=== PATIENT | male | born 1980 | race Hispanic/Latino ===

== ENCOUNTER 2023-01-19 16:27 | Observation (INO) | payer OTHER, SELFPAY ==
[2023-01-19] VITALS (13 sets, daily range): BP systolic 155–252; BP diastolic 88–137; PULSE 102–114; RESP 18–33; TEMP 36.6–36.8; O2SAT 94–99; BMI 36.5
--- NOTE | ~2023-01-19 | US_ITS ---
EXAMINATION: US retroperitoneal duplex ltd DATE: 01/20/2023 11:17 INDICATION: Hypertensive emergency TECHNIQUE: Multiple grayscale, color Doppler, and pulsed Doppler images of the kidneys and renal herminio dane were obtained. COMPARISON: None. FINDINGS: The aorta peak systolic velocity is 96 cm/s. The right renal artery peak systolic velocity is 119 cm/ s in the proximal segment, 59 cm/s in the mid segment, and 79 cm/s in the distal segment. The left re nal artery peak systolic velocity is 144 cm/s in the proximal segment, 119 cm/s in the mid segment, a nd 82 cm/s in the distal segment. The bladder is imaged and appears normal. IMPRESSION: 1. No Doppler evidence of renal artery stenosis. Reviewed, dictated and finalized at location A.
--- NOTE | ~2023-01-19 | XR_ITS ---
EXAMINATION: XR chest 1V portable 01/19/2023 17:56 INDICATION: Hypertension PROCEDURE: AP portable chest COMPARISON: No prior studies for comparison. FINDINGS: The lungs are clear. The cardiomediastinal silhouette is within normal limits. There are no pleural effusions. There is no pneumothorax suspected. IMPRESSION: 1: NO ACUTE CARDIOPULMONARY DISEASE. Reviewed, dictated and finalized at location A.
--- NOTE | 2023-01-19 16:39 | ECG_ITS ---
Measurements Intervals [place] Rate: 106 P: 39 MA: 148 QRS: -39 QRSD: 90 T: 112 QT: 329 QTc: 438 Interpretive Statements SINUS TACHYCARDIA LEFT ATRIAL ENLARGEMENT [-0.15mV P WAVE IN V1/V2] MARKED LEFT AXIS DEVIATION [QRS AXIS < -30] LEFT VENTRICULAR HYPERTROPHY AND ST-T CHANGE [VOLTAGE CRITERIA PLUS ST/T ABNORMALITY] CANNOT RULE OUT SEPTAL MYOCARDIAL INFARCTION , OF INDETERMINATE AGE [30 ms Q WAVE IN V1/V2] NO PREVIOUS ECG AVAILABLE FOR COMPARISON Electronically Signed On 01-20-2023 18:12:59 CDT by Marlen Tavarez M.D.
[2023-01-19 16:52] LABS: Hematocrit 45.3 % (42.0-52.0); Hemoglobin 15.1 g/dL (14.0-18.0); Mean Corpuscular HGB Conc 33.3 g/dl (32-36); Mean Corpuscular Hemoglobin 29.4 pg (26-34); Mean Corpuscular Volume 88.1 fl (80-100); Mean Platelet Volume 11.3 fl (7.4-10.4); Platelet Count Result 256 k/mm3 (150-375); Red Blood Count 5.14 M/mm3 (4.6-6.20); Red Cell Distribution Width 13.3 % (11.5-14.5); White Blood Count 13.5 K/mm3 (4.5-10.0)
[2023-01-19 17:02] LABS: Alanine Aminotransferase 32 U/L (6-50); Albumin Level 4.4 g/dL (3.5-5.1); Alkaline Phosphatase 88 U/L (38-126); Anion Gap 5 mmol/L (8-16); Aspartate Amino Transferase 34 U/L (17-59); Bilirubin,Total 1.1 mg/dL (0.2-1.3); Blood Urea Nitrogen 20 mg/dL (9-20); Calcium 8.9 mg/dL (8.4-10.2); Carbon Dioxide 31 mmol/L (22-30); Chloride 102 mmol/L (98-107); Estimated CRCL calculation 121 ml/min; Estimated Glomerular Filt Rate > 60; Glucose 95 mg/dL (65-110); Potassium 3.7 mmol/L (3.4-5.0); Sodium 138 mmol/L (137-145)
[2023-01-19 17:15] LABS: Troponin I 0.362 ng/mL (0.000-0.034)
[2023-01-19 17:20] LABS: Eosinophils Absolute Manual 0.13 K/mm3 (0.02-0.5); Eosinophils Percent Manual 1 % (0-4); Lymphocytes Absolute Manual 5.13 K/mm3 (1.1-4.5); Monocytes Absolute Manual 0.81 K/mm3 (0.1-0.90); Monocytes Percent Manual 6 % (3-9); Neutrophils Percent Manual 55 % (46-73); Platelet Estimate Adequate (Adequate); Schistocytes None Seen (NORMAL); Total Cells Counted 100
--- NOTE | 2023-01-19 17:45 | ED.RECABL ---
HPI - Recheck/Abnormal Lab/Rx General Chief Complaint: Recheck/Abnormal Lab/Rx Stated Complaint: HTN Time Seen by Provider: 01/19/23 16:33 History of Present Illness HPI narrative: Patient is a 42-year-old male with a history of hypertension presenting with high blood pressure. Patient states that he was at a physical earlier today and was told that his blood pressure is too high and that he needs to come to the ER. States that it was in the 240s to 250s systolic. States that he used to be on antihypertensives but he has not been for several years. He denies any complaints at this time. No headache, vision changes, chest pain, shortness of breath, leg swelling. States he feels at baseline. Related Data Allergies Allergy/AdvReac Type Severity Reaction Status Date / Time No Known Allergies Allergy Mild Verified 01/19/23 16:45 Review of Systems Review of Systems: All systems reviewed & are unremarkable except as noted in HPI and below PMFSH Past Medical History Medical History Hypertension Surgical History Surgical History History of appendectomy (2010) Family History Family History Mother Patient's mother is in good health Diabetes mellitus Father Patient's father is in good health COVID Social History Social History Social History: Surrogate medical decision maker: Roz Saavedra, spouse. Code status: Full code. Smoking packs per day: 0.5 Smoking cigarettes per day: 10.0 Smoking status: Former smoker Tobacco type: cigarettes Alcohol intake: never Substance use: never Lack of Transportation: No Lack of Food: Never True Current Housing: I Have Housing Concerned About Future Housing: No Difficulty Paying Gas/Electric Bills: No Difficulty Paying for Meds: No Currently Unemployed: No Education: High School Diploma/GED Difficulty w/ Childcare or Family Care: No Additional living arrangements comments: The patient lives with his and 2 daughters in [place]. 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 Spiritual care concerns: No Exam Narrative: GENERAL: Well-appearing, well-nourished, and in no acute distress. HEAD: Normocephalic, atraumatic. EYES: PERRLA and EOMI. ENT: Nares clear, no rhinorrhea or epistaxis. Mucous membranes moist. NECK: Supple. CHEST: Clear to auscultation. No respiratory distress. HEART: Regular rate and rhythm. No murmur heard. Normal peripheral pulses. ABDOMEN: Soft, nontender, nondistended EXTREMITIES: Normal range of motion. No edema. SKIN: Warm, dry, no rash. NEURO: No focal deficits. Alert and oriented x3. PSYCH: Normal mood and affect. Course Vital Signs Vital signs: Vital Signs Temperature 98.2 F 01/19/23 16:28 Pulse Rate 108 H 01/19/23 16:28 Respiratory Rate 18 01/19/23 16:28 Blood Pressure 245/130 H 01/19/23 16:28 Pulse Oximetry 99 01/19/23 16:28 Oxygen Delivery Room Air 01/19/23 16:28 Temperature 98.5 F 01/20/23 11:47 Pulse Rate 100 01/20/23 14:00 Respiratory Rate 16 01/20/23 11:47 Blood Pressure 143/87 H 01/20/23 11:47 Pulse Oximetry 98 01/20/23 12:00 Oxygen Delivery Room Air 01/20/23 12:00 MDM - Recheck/Abnormal Lab/Rx MDM Narrative Medical decision making narrative: Patient is a 42-year-old male presenting with hypertension. On arrival, his blood pressures 240s over 130s. He is a bit tachycardic. Saturating well on room air. EKG per my interpretation shows sinus tachycardia, left axis deviation, no ST elevations or depressions. Troponin is elevated at 0.362. Patient continues to deny any chest pain or shortness of breath. Patient will be started on a Cardene drip for hypertensive emergency. I spoke with the bottle blowing machine tender who is happy to consult on
[2023-01-19] MEDS: niCARdipine 20 MG/200 ML 20 MG/200 ML BAG 50 MG IV CONT (18:13)
--- NOTE | 2023-01-19 18:45 | PM.IMHP ---
H&P: HPI History of Present Illness Date/Time: 01/19/23 18:45 Chief Complaint: High blood pressure. Narrative: This is a pleasant 42-year-old male with hypertension no longer on medication following weight loss who presented to the emergency department via private vehicle for evaluation of high blood pressure. Patient provides the following history. He had a pre-employment physical today and was directed to the ER after his systolic blood pressure was reportedly 230. He reports feeling in his usual state of health and he denies headache, lightheadedness, vision changes, chest pain, shortness a breath, orthopnea, lower extremity edema, nausea, and vomiting. His blood pressure was as high as 252/137 in the ED and he was given IV labetalol 20 mg with improvement in his systolic to around 200. Labs were significant for a WBC count of 13.5, BUN 20, creatinine 0.80, troponin 0.362. EKG today showed findings of LVH, left axis deviation, and possible septal infarct of indeterminate age. He is being admitted to the ICU in this setting on a nicardipine drip. He has no current complaints. The patient believes that he was on lisinopril and a diuretic several years ago which seemed to keep his blood pressure under good control. After losing 50 lb he quit taking his medications but unfortunately he has not been following his blood pressures at home. Review of Systems Review of Systems: Twelve systems were reviewed and are negative except for as per HPI. [facility] Past Medical History Medical History (Updated 01/19/23 @ 21:48 by Gillian Fragoso PA-C) Hypertension Surgical History Surgical History (Updated 01/19/23 @ 21:48 by Gillian Fragoso PA-C) History of appendectomy (2010) Family History Family History (Updated 01/19/23 @ 18:47 by Louise Nails RN) Mother Patient's mother is in good health Diabetes mellitus Father Patient's father is in good health COVID Social History Social History (Updated 01/19/23 @ 21:49 by Gillian Fragoso PA-C) Social History: Surrogate medical decision maker: Roz Saavedra, spouse. Code status: Full code. Smoking packs per day: 0.5 Smoking cigarettes per day: 10.0 Smoking status: Former smoker Tobacco type: cigarettes Alcohol intake: never Substance use: never Lack of Transportation: No Lack of Food: Never True Current Housing: I Have Housing Concerned About Future Housing: No Difficulty Paying Gas/Electric Bills: No Difficulty Paying for Meds: No Currently Unemployed: No Education: High School Diploma/GED Difficulty w/ Childcare or Family Care: No Additional living arrangements comments: The patient lives with his and 2 daughters in [place]. 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 Spiritual care concerns: No Meds Home Medications and Allergies Home Medications Medication Instructions Recorded Confirmed Type No Home Medications 01/19/23 01/19/23 History Allergies Allergy/AdvReac Type Severity Reaction Status Date / Time No Known Allergies Allergy Mild Verified 01/19/23 16:45 Vital Signs Vital Signs - 24 hr 01/19/23 16:28 01/19/23 16:44 01/19/23 17:44 Temperature 98.2 F Pulse Rate 108 H 107 H 102 H Respiratory Rate 18 21 H 23 H Blood Pressure 245/130 H 252/137 H 207/114 H Pulse Oximetry 99 98 98 Oxygen Delivery Room Air Exam Narrative: General: Well-developed, well-nourished male sitting up in bed in no acute distress. Weight: 105 kg. BMI: 37.4. HEENT: PERRL, EOMI. Sclera anicteric. Conjunctiva mildly injected. Oral mucosa moist. Oropharynx clear. Neck: Supple. No JVD. Respiratory: Lungs are clear to auscultation bilaterally. Cardiovascular: Regular rate and rhythm with S1-S2. Gastrointestinal: Abdomen is soft, nontender, and nondistended with positive bowel sounds. No organomegaly. Skin: Warm and dry. No rash or lesions on limited exam. Extremities: No cyanosis,
--- NOTE | 2023-01-19 19:59 | ADMGEN ---
This patient, Alli Saavedra, was admitted to Intensive Care Unit-10. Patient/family oriented to hospital policies and general routines including ID bracelet, bed and alarms, visiting hours, pain management, procedures, bathroom and other care routines, personal items, smoking policy, room service/diet, and visiting hours. Information on how to activate the Rapid Response Team has been discussed. Patient/Family are encouraged to report perceived risks to care and to ask questions if they do not understand what they are told or what they should do.
[2023-01-19 20:20] LABS: Troponin I 0.301 ng/mL (0.000-0.034)
[2023-01-19] MEDS: LOSARTAN POTASSIUM 50 MG TABLET PO (23:26)
[2023-01-19 23:27] LABS: Troponin I 0.334 ng/mL (0.000-0.034)
[2023-01-20] VITALS (9 sets, daily range): BP systolic 116–194; BP diastolic 69–103; PULSE 85–107; RESP 16–27; TEMP 36.8–36.9; O2SAT 94–99
[2023-01-20 04:32] LABS: Hematocrit 43.6 % (42.0-52.0); Hemoglobin 14.6 g/dL (14.0-18.0); Mean Corpuscular HGB Conc 33.5 g/dl (32-36); Mean Corpuscular Hemoglobin 29.4 pg (26-34); Mean Corpuscular Volume 87.9 fl (80-100); Mean Platelet Volume 11.2 fl (7.4-10.4); Platelet Count Result 237 k/mm3 (150-375); Red Blood Count 4.96 M/mm3 (4.6-6.20); Red Cell Distribution Width 13.3 % (11.5-14.5)
[2023-01-20 04:43] LABS: Anion Gap 5 mmol/L (8-16); Blood Urea Nitrogen 16 mg/dL (9-20); Calcium 8.6 mg/dL (8.4-10.2); Carbon Dioxide 30 mmol/L (22-30); Chloride 102 mmol/L (98-107); Cholesterol 154 mg/dL (0-200); Estimated CRCL calculation 120 ml/min; Estimated Glomerular Filt Rate > 60; Glucose 109 mg/dL (65-110); HDL Direct 32 mg/dL; Magnesium 2.2 mg/dL (1.6-2.3); Potassium 3.8 mmol/L (3.4-5.0); Sodium 137 mmol/L (137-145); Triglycerides 108 mg/dL (<150)
[2023-01-20 04:53] LABS: LDL Cholesterol Direct 92 mg/dL
[2023-01-20] MEDS: LOSARTAN POTASSIUM 50 MG TABLET PO (07:42)
[2023-01-20] MEDS: hydroCHLOROthiazide 25 MG TABLET PO (07:42)
[2023-01-20] MEDS: PERFLUTREN LIPID MICROSPHERES 1.5 ML VIAL DILUTED TO 10 ML TOTAL VOLUME IV PUSH (08:11)
--- NOTE | 2023-01-20 08:11 | IVDEFINITY ---
Prior to administration of IV Definity the patient was educated on the risks and benefits of the imaging enhancing agent including potential adverse side effects. The patient verbalized understanding. Allergies were verified. No exclusion criteria were identified and at least one of the following inclusion criteria were met: 1) physician request, 2) patient technically difficult to image (per the [place] [employer] guidelines of two or more segments not discernable within the apical view), or 3) questionable left ventricular function. ?
[2023-01-20] MEDS: hydrALAZINE HCL 20 MG/ML VIAL IV PUSH (08:37)
--- NOTE | 2023-01-20 11:05 | PM.IMPN ---
Progress Note: A&P Assessment and Plan (1) Hypertensive emergency: Code(s): I16.1 - Hypertensive emergency Status: Acute Assessment and Plan: Blood pressure improved, change to orals. Consider adding beta darryl (2) Elevated troponin: Code(s): R77.8 - Other specified abnormalities of plasma proteins Status: Acute Assessment and Plan: Denies chest pain current Subjective Date/time seen: 01/20/23 11:05 No complaints Exam Narrative: General: Well-developed, well-nourished male sitting up in bed in no acute distress. Weight: 105 kg. BMI: 37.4. HEENT: PERRL, EOMI. Sclera anicteric. Conjunctiva mildly injected. Oral mucosa moist. Oropharynx clear. Neck: Supple. No JVD. Respiratory: Lungs are clear to auscultation bilaterally. Cardiovascular: Regular rate and rhythm with S1-S2. Gastrointestinal: Abdomen is soft, nontender, and nondistended with positive bowel sounds. No organomegaly. Skin: Warm and dry. No rash or lesions on limited exam. Extremities: No cyanosis, clubbing, or edema. Radial and pedal pulses intact. Neurological: Alert. Cranial nerves 2-12 are grossly intact. No gross focal deficits to casual conversation. Psychiatric: Pleasant and cooperative with normal mood and affect. Judgment and insight intact. Objective Data Vital Signs Vital Signs: Vital Signs - 24 hr 01/19/23 16:28 01/19/23 16:44 01/19/23 17:44 Temperature 98.2 F Pulse Rate 108 H 107 H 102 H Respiratory Rate 18 21 H 23 H Blood Pressure 245/130 H 252/137 H 207/114 H Pulse Oximetry 99 98 98 Oxygen Delivery Room Air 01/19/23 18:13 01/19/23 18:16 01/19/23 18:59 Temperature Pulse Rate 106 H 104 H 114 H Respiratory Rate 23 H 33 H Blood Pressure 207/114 H 227/120 H 195/93 H Pulse Oximetry 97 96 Oxygen Delivery 01/19/23 19:20 01/19/23 20:00 01/19/23 20:45 Temperature 97.8 F Pulse Rate 110 H 114 H Respiratory Rate 27 H Blood Pressure 164/88 H 165/93 H 160/88 H Pulse Oximetry 96 Oxygen Delivery 01/19/23 21:03 01/19/23 20:00 01/19/23 20:05 Temperature Pulse Rate 114 H Respiratory Rate Blood Pressure 172/97 H Pulse Oximetry 96 Oxygen Delivery Room Air 01/19/23 21:00 01/19/23 22:00 01/19/23 22:00 Temperature Pulse Rate 108 H 102 H 102 H Respiratory Rate 25 H Blood Pressure 165/95 H 155/99 H Pulse Oximetry 94 Oxygen Delivery 01/20/23 00:00 01/20/23 00:00 01/20/23 00:00 Temperature 98.4 F Pulse Rate 92 92 Respiratory Rate 27 H Blood Pressure 169/96 H Pulse Oximetry 94 94 Oxygen Delivery Room Air 01/20/23 02:00 01/20/23 02:00 01/20/23 04:00 Temperature Pulse Rate 85 85 85 Respiratory Rate 24 H Blood Pressure 148/94 H Pulse Oximetry 94 Oxygen Delivery 01/20/23 04:00 01/20/23 04:00 01/20/23 06:00 Temperature 98.3 F Pulse Rate 85 88 Respiratory Rate 24 H Blood Pressure 159/92 H Pulse Oximetry 99 98 Oxygen Delivery Room Air 01/20/23 06:00 01/20/23 08:00 01/20/23 08:00 Temperature 98.5 F Pulse Rate 88 97 Respiratory Rate 22 H 16 Blood Pressure 168/98 H 194/103 H Pulse Oximetry 95 98 98 Oxygen Delivery Room Air 01/20/23 08:00 01/20/23 10:00 01/20/23 10:00 Temperature Pulse Rate 96 85 93 Respiratory Rate 16 Blood Pressure 116/69 Pulse Oximetry 98 Oxygen Delivery Intake/Output Intake/Output: Intake & Output 01/17/23 01/18/23 01/19/23 01/20/23 23:59 23:59 23:59 23:59 Intake Total 480 Output Total 2200 Balance -1720 Meds/Results Medications: Active Medications Generic Name Dose Route Start Last Admin Trade Name Freq PRN Reason Stop Dose Admin Dextrose 12.5 gm 01/19/23 21:52 Dextrose 50% 25 Gm/50 Ml Syringe IV PUSH PRN PRN Hypoglycemia Protocol Glucagon 1 mg 01/19/23 21:52 Glucagon For Inj 1 Mg Vial IM PRN PRN Hypoglycemia Protocol Glucose 15 gm 01/19/23 21:52
--- NOTE | 2023-01-20 11:49 | WPDCNINT ---
Assessment and Plan Assessment and plan (1) Hypertensive urgency: Code(s): I16.0 - Hypertensive urgency Status: Acute Assessment and Plan: Patient presented with hypertensive urgency -has been started on losartan, hydrochlorothiazide -will still maintain blood pressures at least between 160s to 180s and gradually bring the the blood pressures down - (2) Elevated troponin: Code(s): R77.8 - Other specified abnormalities of plasma proteins Status: Acute Assessment and Plan: Likely related to hypertensive urgency Plan DVT prophylaxis: SCDs Stress ulcer prophylaxis: Not indicated Nutrition: Heart healthy diet Code Status: Full code Critical Care Time Spent: 44 minutes Due to a high probability of clinically significant, life threatening deterioration, the patient required my highest level of preparedness to intervene emergently and I personally spent this critical care time directly and personally managing the patient. This critical care time included obtaining a history; examining the patient; pulse oximetry; ordering and review of studies; arranging urgent treatment with development of a management plan; evaluation of patient's response to treatment; frequent reassessment; and discussions with other providers. It was exclusive of separately billable procedures and treating other patients and teaching time. Please see Assessment and Plan section and the rest of the note for further information on patient assessment and treatment This dictation may have been done utilizing a voice recognition system. Attempts have been made to correct errors. However, there may be uncorrected grammatical, spelling, and recognitions errors present. [employer] Consult Note Consult date: 01/20/23 Reason for consult: Hypertensive urgency HPI: Alli Saavedra is a 42 year old male with past medical history of hypertension, presented the ED with via private vehicle for evaluation of elevated blood pressures. Patient stated that he had a pre-employment physical exam on the day of admission and his systolic blood pressures were elevated to 30 and was sent to the ED for further evaluation. Patient denies any headache, lightheadedness, vision changes, chest pain, shortness of breath, little lower extremity edema, nausea, vomiting, abdominal pain. His blood pressures in the ED was 252/137, patient was given IV labetalol and started on nicardipine drip. Upon arrival to the ICU patient was on nicardipine drip for 2 hours after which it was discontinued. Patient was started on HCTZ and losartan per hospitalist with a target systolic blood pressures of 170-180. Patient was troponins were slightly elevated, had leukocytosis in the ER, EKG showed LVH, chest x-ray showed no acute cardiopulmonary disease. This morning renal duplex ultrasound was done which did not reveal any evidence of renal artery stenosis. Patient seen and examined this morning in the ICU, systolic blood pressures were much improved to the 140s to 170s range. Patient denies any chest pain, shortness with, abdominal pain, nausea, vomiting, abdominal pain, lightheadedness, dizziness, vision changes. He denies any alcohol or illicit drug use, he was a former smoker. Review of Systems Review of Systems: All systems reviewed & are unremarkable except as noted in HPI and below PMFSH Past Medical History Medical History (Updated 01/20/23 @ 11:59 by Ellen Haji MD) Hypertension Surgical History Surgical History (Updated 01/19/23 @ 21:48 by Gillian Fragoso PA-C) History of appendectomy (2010) Family History Family History (Updated 01/19/23 @ 18:47 by Louise Nails RN) Mother Patient's mother is in good health Diabetes mellitus Father Patient's father is in good health COVID Social History Social History (Updated 01/19/23 @ 21:49 by Gillian Fragoso PA-C) Social History: Surrogate medical decision maker: oscar Howe
--- NOTE | 2023-01-20 13:07 | PM.CNCAR ---
Assessment and Plan Assessment and plan (1) Hypertensive urgency: Code(s): I16.0 - Hypertensive urgency Status: Acute (2) Elevated troponin: Code(s): R77.8 - Other specified abnormalities of plasma proteins Status: Acute Plan Blood pressure is now much improved with Losartan and HCTZ. Elevated troponins are flat and in the setting of uncontrolled hypertension. No chest pain or other cardiac symptoms. EKG without ischemic changes. Likely type II. No concern for ACS. Echo showing severe concentric LVH with mildly reduced LVSF. Likely from longstanding uncontrolled HTN. Recommend to continue with Losartan, HCTZ. Add Coreg 12.5mg BID given mild tachycardia. At this time, no further cardiac workup as inpatient needed. Okay to discharge home from a cardiac standpoint. We will arrange for outpatient follow up in our clinic. Recommendations discussed with Hospitalist, Dr. Seth. History of Present Illness History of Present Illness Consult date/time: 01/20/23 13:07 Requesting physician: Natasha Wills MD Consult reason: Other (Hypertensive emergency) Reason For Visit: hypertensive emergency Narrative: We are consulted for hypertensive emergency and elevated troponin. This is a 42 year old male with a history of hypertension not on medications who presented to [place] ER for evaluation of high blood pressure. Had a pre-employment physical and was found with SBP in the 230s, therefore, sent to the ER for further management. Patient states he feels fine without chest pain, shortness of breath, or other symptoms. BP 252/137 in the ED. Given IV Labetalol 20mg with improvement. EKG with sinus rhythm with LVH with secondary repolarization changes. Initially on Nicardipine drip. Peak troponin of 0.362. BP now in the 140s-160s systolics. Review of Systems Review of Systems: All systems reviewed & are unremarkable except as noted in HPI and below (HPI) [facility] Past Medical History Medical History Hypertension Surgical History Surgical History History of appendectomy (2010) Family History Family History Mother Patient's mother is in good health Diabetes mellitus Father Patient's father is in good health COVID Social History Social History Social History: Surrogate medical decision maker: Roz Saavedra, spouse. Code status: Full code. Smoking packs per day: 0.5 Smoking cigarettes per day: 10.0 Smoking status: Former smoker Tobacco type: cigarettes Alcohol intake: never Substance use: never Lack of Transportation: No Lack of Food: Never True Current Housing: I Have Housing Concerned About Future Housing: No Difficulty Paying Gas/Electric Bills: No Difficulty Paying for Meds: No Currently Unemployed: No Education: High School Diploma/GED Difficulty w/ Childcare or Family Care: No Additional living arrangements comments: The patient lives with his and 2 daughters in [place]. 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 Spiritual care concerns: No Meds Home Medications and Allergies Home Medications Medication Instructions Recorded Confirmed Type No Home Medications 01/19/23 01/19/23 History Allergies Allergy/AdvReac Type Severity Reaction Status Date / Time No Known Allergies Allergy Mild Verified 01/19/23 16:45 Vital Signs Vital Signs - 24 hr 01/19/23 16:28 01/19/23 16:44 01/19/23 17:44 Temperature 36.8 C Pulse Rate 108 H 107 H 102 H Respiratory Rate 18 21 H 23 H Blood Pressure 245/130 H 252/137 H 207/114 H Pulse Oximetry 99 98 98 Oxygen Delivery Room Air 01/19/23 18:13 01/19/23 18:16 01/19/23 18:59 Temperature Pulse Rate 106 H 104 H 114 H Respiratory Rate 23 H 33 H Blood Press
--- NOTE | 2023-01-20 14:02 | PM.DS ---
DS: Admitting Diagnosis Discharge Date 01/20/23 Admitting Diagnosis hypertensive urgency DS: Discharge Diagnosis Discharge Diagnosis (1) Hypertensive urgency: Code(s): I16.0 - Hypertensive urgency Status: Acute Assessment and Plan: Patient presented with hypertensive urgency -has been started on losartan, hydrochlorothiazide -will still maintain blood pressures at least between 160s to 180s and gradually bring the the blood pressures down - (2) Elevated troponin: Code(s): R77.8 - Other specified abnormalities of plasma proteins Status: Acute Assessment and Plan: Likely related to hypertensive urgency Plan DVT prophylaxis: SCDs Stress ulcer prophylaxis: Not indicated Nutrition: Heart healthy diet Code Status: Full code Critical Care Time Spent: 44 minutes Due to a high probability of clinically significant, life threatening deterioration, the patient required my highest level of preparedness to intervene emergently and I personally spent this critical care time directly and personally managing the patient. This critical care time included obtaining a history; examining the patient; pulse oximetry; ordering and review of studies; arranging urgent treatment with development of a management plan; evaluation of patient's response to treatment; frequent reassessment; and discussions with other providers. It was exclusive of separately billable procedures and treating other patients and teaching time. Please see Assessment and Plan section and the rest of the note for further information on patient assessment and treatment This dictation may have been done utilizing a voice recognition system. Attempts have been made to correct errors. However, there may be uncorrected grammatical, spelling, and recognitions errors present. DS: Summary Hospital Course Hospital Course: admitted for hypertensive urgency --> iv to oral regimen, bp better controlled fu cardiology Time Spent with Patient Time attestation: Total time spent providing and/or coordinating discharge services: Exam Narrative: General: Pleasant gentleman no acute distress HEENT:? Pupils equal and reactive, sclera is clear, moist oral mucosa Neck:? Supple Respiratory:? Clear to auscultation bilaterally Cardiac:? Sinus tachycardia Abdomen:? Soft, nontender, nondistended, normoactive bowel sounds Extremities:? No edema, palpable pedal pulses Neuro:? Patient is awake, alert, oriented x3, nonfocal Skin:? No lesions noted except for tattoos Psych:? Normal mentation and affect DS: Data Data Completed and Pending Labs on day of discharge: Labs from last 24 hours 01/20/23 01/20/23 01/20/23 04:08 04:08 04:08 WBC 9.0 RBC 4.96 Hgb 14.6 Hct 43.6 MCV 87.9 MCH 29.4 MCHC 33.5 RDW 13.3 Plt Count 237 MPV 11.2 H Immature Gran % (Auto) Neut % (Auto) Lymph % (Auto) [place] % (Auto) Eos % (Auto) Baso % (Auto) Lymph # (Auto) [place] # (Auto) Eos # (Auto) Baso # (Auto) Abs Immat Gran (auto) Absolute Neuts (auto) Absolute Nucleated RBC Total Counted Neutrophils % (Manual) Lymphocytes % (Manual) Monocytes % (Manual) Eosinophils % (Manual) Nucleated RBC % Abs Lymphs (Manual) Abs Monocytes (Manual) Absolute Eos (Manual) Platelet Estimate Schistocytes Sodium 137 Potassium 3.8 Chloride 102 Carbon Dioxide 30 Anion Gap 5 L BUN 16 Creatinine 0.80 Estim Creat Clear Calc 120 Estimated GFR > 60 Glucose 109 Calcium 8.6 Magnesium 2.2 Total Bilirubin AST ALT Alkaline Phosphatase Troponin I Total Protein Albumin Triglycerides 108 Cholesterol 154 LDL Cholesterol Direct 92 HDL Direct 32 TSH (Reflex) 1.660 01/19/23 01/19/23 01/19/23 22:43 19:45 16:46 WBC RBC Hgb Hct MCV MCH MCHC RDW Plt Count MPV Immature Gran % (Au
--- NOTE | 2023-01-20 14:50 | PCCCNOTE ---
On 01/20/23, the student, [Stacy Sepulveda], provided care and completed [facility] documentation on this patient. I have reviewed the student's documentation and agree with the findings.
--- NOTE | 2023-01-20 21:53 | ECHO_ITS ---
Patient Info Name: Alli Saavedra Age: 42 years : 1980 Gender: Male Ht: 66 in Wt: 230 lbs BSA: 2.25 m2 HR: 98 bpm BP: 168 / 98 mmHg Heart Rhythm: Sinus Rhythm Exam Date: 01/20/2023 7:56 AM Exam Location: [facility] Patient Status: Outpatient Admit Date: 01/19/2023 Staff Ordering Physician: Gillian Fragoso PA-C Candle Molder Hand: Jefry De León RDCS, RT Attending Provider: Kyle Seth MD Referring Physician: Fouzia [place]; Exam Type: CA echo dop color flow w con Study Info Indications - Elevated tropnin I10 - Essential (primary) hypertension Strain analysis performed. Complete two-dimensional, color flow and Doppler transthoracic echocardiogram is performed with contrast to opacify the left ventricle and to improve the deliniation of the left ventricle endocardial borders. Summary 1. Left ventricular chamber dimension is normal. 2. Left ventricular systolic function is mildly reduced, estimated at 40-45%. 3. There is severe concentric increased left ventricular wall thickness. 4. Right ventricular systolic function is normal. 5. No significant valvular disease. Left Ventricle Left ventricular chamber dimension is normal. Left ventricular systolic function is mildly reduced, estimated at 40-45%. There is severe concentric increased left ventricular wall thickness. Right Ventricle Right ventricular chamber dimension is normal. Right ventricular systolic function is normal. Left Atria Left atrial chamber dimension is normal. Right Atria Right atrial chamber dimension is normal. Atrial Septum Intact interatrial septum visualized by color flow imaging. Aortic Valve The aortic valve is probable trileaflet. There is no aortic valve stenosis. There is no aortic valve regurgitation. Pulmonic Valve The pulmonic valve is not well visualized. Mitral Valve The mitral valve has normal leaflets. There is trace mitral valve regurgitation. Tricuspid Valve There is trace tricuspid valve regurgitation. Pericardium/Pleural The pericardium appears epicardial fat pad. There is no pericardial effusion. Inferior Vena Cava Normal inferior vena cava with >50% collapse upon inspiration consistent with normal right atrial pressure, 3 mmHg. Aorta The aortic root size at the sinus of Valsalva is normal. Left Ventricular Outflow Tract Name Value Normal LVOT 2D LVOT Diameter 2.10 cm LVOT Doppler LVOT Peak Gradient 4 mmHg LVOT Mean Gradient 2 mmHg LVOT VTI 15.22 cm LVOT VTI/AV VTI Ratio 0.62 LVOT Stroke Volume 52.66 ml LVOT CO 5.50 l/min LVOT CI 2.44 L/min/m2 Tricuspid Valve Name Value Normal Estimated PAP/RSVP
== END 2023-01-20 15:42 | disposition home or self-care (01) ==
LOC: ANHED 17:00 → ANHICU 18:34
PROVIDERS: Physician Assistant; Admitting Provider Chiropractor; Emergency Provider Emergency Medicine; Visit Provider Chiropractor
DX: I16.1 Hypertensive emergency (principal); R77.8 Other specified abnormalities of plasma proteins; R00.0 Tachycardia, unspecified; I51.7 Cardiomegaly; D72.829 Elevated white blood cell count, unspecified; Z87.891 Personal history of nicotine dependence
CPT/HCPCS: 36415; 71045; 80048; 80053; 80061; 83735; 84443; 84484; 85025; 85027; 93005; 93976; 96365; 96366; 96374; 96375; 99285; A9270; C8929; G0378; J0360; Q9957